=== PATIENT | male | born 1940 | race Caucasian/White ===

== ENCOUNTER 2016-11-02 13:48 | Emergency (ER) | payer OTHER ==
[~2016-11-02] VITALS: Ht 172.7 cm; Wt 86.9 kg
[2016-11-02 15:09] LABS: HEMATOCRIT 45.3 % (38.0-50.0); MCH 30.8 PG (29.0-34.0); MCHC 34.4 G/DL (30.0-36.0); MCV 89.3 FL (86-99); MEAN PLAT.VOLUME 9.9 uM^3 (9.0-12.4); PLATELET COUNT 120 K/uL (156-360); RBC DIS.WIDTH-CV 12.9 % (11.8-14.6); RBC DIS.WIDTH-SD 42.1 % (39-53); RED BLOOD COUNT 5.07 M/uL (4.00-5.50); WHITE BLOOD COUNT 4.2 K/uL (4.1-10.2)
[2016-11-02 15:17] LABS: CHLORIDE 104 mEq/L (99-109); POTASSIUM 3.6 mEq/L (3.7-5.4); SODIUM 138 mEq/L (136-147)
[2016-11-02 15:19] LABS: GLUCOSE 88 mg/dL (70-99)
[2016-11-02 15:20] LABS: ANION GAP 10 MEQ/L (2-14)
[2016-11-02 15:23] LABS: GFR ESTIMATE (CALCULATED) > 59 mL/min/
[2016-11-02 15:24] LABS: UREA NITROGEN (BUN) 18 mg/dL (9-23)
[2016-11-02 16:56] VITALS: BP 149/79
== END 2016-11-02 17:01 | disposition home or self-care (01) ==
LOC: EME 13:48
DX: R55 Syncope and collapse (principal); E78.5 Hyperlipidemia, unspecified; I10 Essential (primary) hypertension
CPT/HCPCS: 70450; 71020; 80048; 85027; 93005; 99281; 99284